=== PATIENT | female | born 1995 | race Caucasian/White ===

== ENCOUNTER 2017-09-17 00:02 | Observation (INO) | payer OTHER ==
[2017-09-17] VITALS (8 sets, daily range): BP systolic 94–129; BP diastolic 45–82; PULSE 60–76; TEMP 36.4–36.9; O2SAT 94–99; Ht 162.6 cm; Wt 56.5 kg
[~2017-09-17] VITALS: Ht 162.6 cm; Wt 56.5 kg
[2017-09-17] MEDS ORDERED: SODIUM CHLORIDE 0.9% 500ML 500 ML IV STA (00:43)
[2017-09-17] MEDS ORDERED: MoRPHine SULFATE 2 MG/ML CARP IV STA (00:43)
[2017-09-17] MEDS ORDERED: SODIUM CHLORIDE 0.9% 1000ML 1,000 ML IV STA (00:43)
[2017-09-17] MEDS ORDERED: ONDANSETRON INJ 2 MG/ML 2 ML VIAL IV STA (00:43)
--- NOTE | 2017-09-17 00:45 | EMERGENCY ROOM VISIT NOTE ---
History Report prepared by Scribe: Janette Parkinson Under the Supervision of: Dr. Phyllis Dunbar M.D. First contact with patient: 00:29 Chief Complaint: ABDOMINAL PAIN Stated Complaint: STOMACH PAIN History of Present Illness The patient is a 21 year old female who presents to the Emergency Room with complaints of worsening abdominal pain since 1800 this evening. She rates her pain as a 7/10 in severity. The pain started in her mid-upper abdomen, then moved down to the right. She is minimally nauseated. She has not vomited or had diarrhea. 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 She denies any chance of . Her last BM was yesterday and normal. She denies any history of chronic medical problems. She has never experienced an ovarian cyst before. Source of History: patient Onset: 1800 today Position: abdomen Symptom Intensity: 7/10 Timing: worsening Associated Symptoms: + nausea, No vomiting, No diarrhea Review of Systems See HPI for pertinent positives & negatives. A total of 10 systems reviewed and were otherwise negative. Past Medical & Surgical Medical Problems: (1) Acute appendicitis (2) No significant past medical history (3) RLQ abdominal pain Social History Smoking Status: Never Smoker Alcohol Use: occasionally Drug Use: none Marital Status: single Housing Status: lives with roommate Occupation Status: [employer] student Current/Historical Medications Scheduled Fluoxetine Hcl (Prozac), 1 CAP PO QAM Fluoxetine Hcl (Prozac), 1 CAP PO QAM Scheduled PRN Oxycodone/Acetaminophen 5MG/325MG (Percocet 5MG/325MG), 1 TABLET PO Q4H PRN for Pain Allergies Coded Allergies: No Known Allergies (Unverified , 09/17/17) Physical Exam Vital Signs Date Time Temp Pulse Resp B/P (MAP) Pulse Ox O2 Delivery O2 Flow Rate FiO2 09/17/17 08:41 69 18 112/77 97 Room Air 09/17/17 06:52 56 18 114/66 98 Room Air 09/17/17 05:36 36.7 60 18 100/64 98 Room Air 09/17/17 05:10 57 09/17/17 04:00 36.8 62 18 104/72 98 Room Air 09/17/17 02:05 63 18 102/60 98 Room Air 09/17/17 01:13 61 09/17/17 00:23 36.7 72 18 122/77 98 Room Air Physical Exam Vital signs reviewed. General: Well-appearing 21 year old female, in no significant distress. HEENT: No scleral icterus, PERRLA, neck supple. Atraumatic. Cardiovascular: Regular rate and rhythm, no extra sounds. Pulmonary: Clear to auscultation bilaterally, normal work of breathing. Abdomen: Soft, tender in the RLQ, no rebound, no guarding, nondistended, positive bowel sounds. Musculoskeletal: Atraumatic, no peripheral edema. Neurologic: Patient awake alert and oriented x 3 Skin: Warm, dry, no rash Medical Decision & Procedures ER Provider Diagnostic Interpretation: Radiology results as stated below per my review and radiologist interpretation: CT ABDOMEN & PELVIS With Contrast: Lower thorax is unremarkable. Liver, gallbladder, spleen, pancreas and adrenal glands are unremarkable. Kidneys, ureters and urinary bladder unremarkable. Uterus and adnexa unremarkable. Appendix is not visualized. Mild thickening of the proximal small bowel which may represent a nonspecific enteritis. Moderate amount of stool noted throughout the colon. Trace free fluid in pelvis, likely physiologic. No acute osseous abnormality. Radiologist: Reuben Felipe MD Laboratory Results 09/17/17 01:05 Red Blood Count 4.08, Mean Corpuscular Volume 92.4, Mean Corpuscular Hemoglobin 32.1, Mean Corpuscular Hemoglobin Concent 34.7, Mean Platelet Volume 9.7, Neutrophils (%) (Auto) 55.6, Lymphocytes (%) (Auto) 34.7, Monocytes (%) (Auto) 8.6, Eosinophils (%) (Auto) 0.8, Basophils (%) (Auto) 0.2, Neutrophils # (Auto) 4.89, Lymphocytes # (Auto) 3.06, Monocytes # (Auto) 0.76, Eosinophils # (Auto) 0.07, Basophils # (Auto) 0.02 09/17/17 01:05 Test 09/17/17 01:05 09/17/17 01:08 White Blood Count 8.81 K/uL (4.8-10.8) Red Blood Count 4.08 M/uL (4.2-5.4) Hemoglobin 13.1 g/dL (12.0-16.0) Hematocrit 37.7 % (37-47) Mean Corpuscular Volume 92.4 fL (80-100) Mean Corpuscular Hemoglobin 32.1 pg (25-34) Mean Corpuscular Hemoglobin Concent 34.7 g/dl (32-36) Platelet Count 268 K/uL (130-400) Mean Platelet Volume 9.7 fL (7.4-10.4) Neutrophils (%) (Auto) 55.6 % Lymphocytes (%) (Auto) 34.7 % Monocytes (%) (Auto) 8.6 % Eosinophils (%) (Auto) 0.8 % Basophils (%) (Auto) 0.2 % Neutrophils # (Auto) 4.89 K/uL (1.4-6.5) Lymphocytes # (Auto) 3.06 K/uL (1.2-3.4) Monocytes # (Auto) 0.76 K/uL (0.11-0.59) Eosinophils # (Auto) 0.07 K/uL (0-0.5) Basophils # (Auto) 0.02 K/uL (0-0.2) RDW Standard Deviation 40.7 fL (36.4-46.3) RDW Coefficient of Variation 12.0 % (11.5-14.5) Immature Granulocyte % (Auto) 0.1 % Immature Granulocyte # (Auto) 0.01 K/uL (0.00-0.02) Anion Gap 6.0 mmol/L (3-11) Est Creatinine Clear Calc Drug Dose 102.9 ml/min Estimated GFR () 131.8 Estimated GFR (Non- 113.7 BUN/Creatinine Ratio 21.5 (10-20) Calcium Level 9.7 mg/dl (8.5-10.1) Total Bilirubin 0.4 mg/dl (0.2-1) Direct Bilirubin 0.1 mg/dl (0-0.2) Aspartate Amino Transf (AST/SGOT) 15 U/L (15-37) Alanine Aminotransferase (ALT/SGPT) 22 U/L (12-78) Alkaline Phosphatase 98 U/L (45-117) Total Protein 7.6 gm/dl (6.4-8.2) Albumin 3.9 gm/dl (3.4-5.0) Lipase 140 U/L (73-393) Urine Color YELLOW Urine Appearance CLEAR (CLEAR) Urine pH 6.5 (4.5-7.5) Urine Specific [place] 1.019 (1.000-1.030) Urine Protein NEG (NEG) Urine Glucose (UA) NEG (NEG) Urine Ketones NEG (NEG) Urine Occult Blood NEG (NEG) Urine Nitrite NEG (NEG) Urine Bilirubin NEG (NEG) Urine Urobilinogen NEG (NEG) Urine Leukocyte Esterase TRACE (NEG) Urine WBC (Auto) 1-5 /hpf (0-5) Urine RBC (Auto) 0-4 /hpf (0-4) Urine Hyaline Casts (Auto) 0 /lpf (0-5) Urine Epithelial Cells (Auto) 10-20 /lpf (0-5) Urine Bacteria (Auto) NEG (NEG) Urine Test NEG (NEG) Laboratory results per my review. Medications Administered Medications (Trade) Dose Ordered Sig/Petr Route Start Time Stop Time Status Last Admin Dose Admin Morphine Sulfate (MoRPHine SULFATE INJ) 2 mg NOW STAT IV 09/17/17 00:43 09/17/17 00:44 DC 09/17/17 01:04 2 MG Ondansetron HCl (Zofran Inj) 4 mg NOW STAT IV 09/17/17 00:43 09/17/17 00:44 DC 09/17/17 01:04 4 MG Sodium Chloride 1,000 ml @ 125 mls/hr Q8H STAT IV 09/17/17 00:43 09/17/17 08:42 DC 09/17/17 01:04 125 MLS/HR Sodium Chloride 500 ml @ 999 mls/hr Q31M STAT IV 09/17/17 00:43 09/17/17 01:13 DC 09/17/17 01:04 999 MLS/HR Morphine Sulfate (MoRPHine SULFATE INJ) 4 mg NOW STAT IV 09/17/17 04:29 09/17/17 04:30 DC 09/17/17 04:33 4 MG Ketorolac Tromethamine (Toradol Inj) 30 mg NOW STAT IV 09/17/17 04:56 09/17/17 04:57 DC 09/17/17 05:05 30 MG ED Course 0041: Past medical records reviewed. The patient was evaluated in room B8. A complete history and physical examination was performed. 0043: NSS 500 ml @ 999 mls/hr IV, NSS 1000 ml @ 125 mls/ht IV, Zofran 4 mg IV, Morphine Sulfate 2 mg IV. 0429: Morphine Sulfate 4 mg IV. 0455: I reevaluated the patient. She states she is now having pain in the left upper flank and RLQ. I will administer a dose of Toradol and recheck her. 0456: Toradol 30 mg IV. 0515: Nursing informed me the patient is still complaining of pain. I will page general surgery. 0540: I [facility]. The patient will be further evaluated in the ED. 0650: I discussed the patients CT scan with Dr. Rose, Radiology. He thinks he sees either a non-opacified loop of bowel versus dilated appendix on CT scan. Medical Decision Differential diagnosis: Etiologies such as appendicitis, diverticulitis, PUD, biliary pathology, UTI, pancreatitis, obstruction, mesenteric ischemia, aortic pathology, infections, inflammatory bowel disease, renal colic, as well as others were entertained. This pt was evaluated and appeared to be in no distress. PE reveals RLQ tenderness. IV access was obtained and lab work was drawn. Pt was hydrated with NSS, given IV morphine and zofran. WBC is normal, CT scan abd and pelvis per STAT Rad is unable to visualize the appendix. Pt was medicated with additional morphine and given a dose of toradol. She continued to experience 7/ 10 pain. I clinically suspected appendicitis. Dr Ojeda of general surgery was contacted for consult in the ED. He was in the OR with another patient. Dr Rose of [facility] rads over-read the CT and expressed concerns for a dilated appendix, not filling with contrast. Surgery PA was consulted and they will be evaluating the pt in the ED. Dr Gupta was made aware of the plan at the change of shift. Pt is aware of the plan and agrees. Medication Reconcilliation Current Medication List: was personally reviewed by me Blood Pressure Screening Patient's blood pressure: Normal blood pressure Blood pressure disposition: Did not require urgent referral Consults Time Called: 514 Consulting Physician: Dr. Ojeda, [facility] [address] General Surgery Returned Call: 0540 I discussed the patients case [facility] Dr[facility] The patient will be further evaluated in the ED. Impression Primary Impression: Right lower quadrant abdominal pain Scribe Attestation The scribe's documentation has been prepared under my direction and personally reviewed by me in its entirety. I confirm that the note above accurately reflects all work, treatment, procedures, and medical decision making performed by me. Departure Information Dispostion Being Evaluated By Surgeon Prescriptions Oxycodone/Acetaminophen 5MG/325MG (PERCOCET 5MG/325MG) Tab 1 TABLET PO Q4H Y for Pain, #18 TAB Prov: Blank Beauchamp ., EARL 09/17/17 Referrals No Doctor, Assigned (PCP) Patient Instructions My [facility]
[2017-09-17 01:13] LABS: BASO % 0.2 %; BASO ABS # 0.02 K/uL (0-0.2); EOS % 0.8 %; EOS ABS # 0.07 K/uL (0-0.5); HEMATOCRIT 37.7 % (37-47); HEMOGLOBIN 13.1 g/dL (12.0-16.0); IG# 0.01 K/uL (0.00-0.02); LYMPH % 34.7 %; LYMPH ABS # 3.06 K/uL (1.2-3.4); MEAN CELL VOLUME 92.4 fL (80-100); MEAN CORPUSCULAR HEMOGLOBIN 32.1 pg (25-34); MEAN CORPUSCULAR HGB CONC 34.7 g/dl (32-36); MEAN PLATELET VOLUME 9.7 fL (7.4-10.4); MONO % 8.6 %; MONO ABS # 0.76 K/uL (0.11-0.59); NEUT % 55.6 %; NEUT ABS # 4.89 K/uL (1.4-6.5); PLATELET COUNT 268 K/uL (130-400); RED CELL DISTRIBUTION WIDTH SD 40.7 fL (36.4-46.3); WHITE BLOOD COUNT 8.81 K/uL (4.8-10.8)
[2017-09-17] MEDS ORDERED: FLUO20CA34 PO (01:25)
[2017-09-17] MEDS ORDERED: PRZC/10 PO (01:25)
[2017-09-17 01:31] LABS: ALBUMIN 3.9 gm/dl (3.4-5.0); CALCIUM 9.7 mg/dl (8.5-10.1); CREATININE 0.76 mg/dl (0.60-1.20); POTASSIUM 3.6 mmol/L (3.5-5.1)
[2017-09-17 01:34] LABS: TOTAL PROTEIN 7.6 gm/dl (6.4-8.2)
[2017-09-17] MEDS ORDERED: OPTIRAY 320 IV PRN (03:45)
[2017-09-17] MEDS ORDERED: MoRPHine SULFATE 4 MG/ML 1 ML CARP\\VIAL IV STA (04:29)
[2017-09-17] MEDS ORDERED: KETOROLAC TROMETHAMINE 30 MG/ML VIAL IV STA (04:56)
--- NOTE | 2017-09-17 06:55 | DIAGNOSTIC IMAGING REPORT ---
CT OF THE ABDOMEN AND PELVIS WITH CONTRAST CLINICAL HISTORY: Right lower quadrant abdominal pain. COMPARISON STUDY: None. TECHNIQUE: Following IV administration of 93 mL of Optiray-320, axial images of the abdomen and pelvis were obtained from the lung bases to the proximal femurs. Images were reviewed in the axial, sagittal, and coronal planes. IV contrast was administered without complication. A dose lowering technique was utilized adhering to the principles of ALARA. Oral contrast was administered. CT DOSE: 281.47 mGy.cm FINDINGS: The liver, spleen, adrenal glands, kidneys and pancreas are normal. There is no biliary or pancreatic ductal dilatation. There is no hydronephrosis. There is no evidence for a bowel obstruction. A normal appendix is not visualized. There is a 1.1 cm tubular unopacified structure along the medial base of the cecum shown on axial image 327 of 451. This is indeterminate. This may reflect an abnormal appendix or an opacified small bowel loop. There is no abscess or free air. No suspicious osseous lesions are present. The ovaries are not enlarged. IMPRESSION: Findings equivocal for acute appendicitis. No normal appendix identified. 1.1 cm tubular structure along the medial base of the cecum could reflect a dilated appendix or unopacified small bowel loop. At a minimum, close clinical follow-up is recommended. Findings discussed with Dr. Dunbar at time dictation. Electronically signed by: Thee Rose M.D. 09/17/2017 6:54 AM Dictated Date/Time: 09/17/2017 6:42 AM
--- NOTE | 2017-09-17 09:15 | EMERGENCY ROOM VISIT NOTE ---
ED Visit Note First contact with patient: 08:21 I assumed care at the change of shift, Dr. Dunbar had been the physician prior to me. Patient was seen by surgery, she will be going to the OR later today for presumed appendicitis. She is currently resting.
[2017-09-17] MEDS ORDERED: OXYCODONE/ACETAMINOPHEN 5-325 TAB PO PRN ×2 (09:30)
[2017-09-17] MEDS ORDERED: MoRPHine SULFATE 2 MG/ML CARP IV PRN ×2 (09:30)
[2017-09-17] MEDS ORDERED: MoRPHine SULFATE 4 MG/ML 1 ML CARP\\VIAL IV PRN (09:30)
--- NOTE | 2017-09-17 09:34 | History and Physical ---
History & Physical Date & Time of Service: Sep 17, 2017 at 09:22 Chief Complaint: Stomach Pain Primary Care Physician: [facility] History of Present Illness Source: patient Elva is a 21-year-old female who presented to the emergency room last evening with complaint of abdominal pain that began around 6 PM. Describes pain as a dull aching pain that progressively got worse. Pain would radiate into the right lower side. Associated nausea but no vomiting. States she does have a low appetite. Was in her normal state of health yesterday morning. Denies of any changes in her bowel habits, no diarrhea, no constipation, or blood in the stools. She denies of any similar previous abdominal pain. Denies of any fevers, chills, vomiting, changes in urinary habits, blood in the urine, or dysuria. States walking does make the pain worse. Last menstrual period 2 weeks ago. Denies of irregular menses. She denies of any known family history of Crohn's disease or ulcerative colitis. Emergency room workup included labs which showed no leukocytosis. CT scan of abdomen and pelvis with IV and p.o. contrast stat read showed no findings of acute appendicitis. CT scan read by our radiologist showed equivocal findings of acute appendicitis. No normal appendix was identified however there was a 1.1 cm tubular structure in the right lower quadrant medial to the cecum which could be a dilated appendix versus a nonopacified loop of small bowel. She was kept for observation in the emergency room. She was given IV morphine and pain was improved slightly to 5 out of 10. No previous history of abdominal surgeries. Past Medical/Surgical History Past medical history No significant past medical history Surgical history Lymph node biopsy at age 3 Social History Smoking Status: Never Smoker Drug Use: none Marital Status: single Occupational Status: [employer] student Allergies Coded Allergies: No Known Allergies (Unverified , 09/17/17) Home Medications Scheduled Fluoxetine Hcl (Prozac), 1 CAP PO QAM Fluoxetine Hcl (Prozac), 1 CAP PO QAM Review of Systems Constitutional: No fever, No chills, No sweats Respiratory: No cough, No shortness of breath Cardiovascular: No chest pain Abdomen: + pain, + nausea, No vomiting, No diarrhea, No constipation, No GI bleeding Genitourinary - Female: No dysuria, No urinary frequency, No urinary urgency, No urinary incontinence, No hematuria, No dysmenorrhea, No menorrhagia, No vaginal discharge, No vaginal itching Hematologic / Lymphatic: No abnormal bleeding/bruising Integumentary: No rash Physical Exam Vital Signs Date Time Temp Pulse Resp B/P (MAP) Pulse Ox O2 Delivery O2 Flow Rate FiO2 09/17/17 08:41 69 18 112/77 97 Room Air 09/17/17 06:52 56 18 114/66 98 Room Air 09/17/17 05:36 36.7 60 18 100/64 98 Room Air 09/17/17 05:10 57 09/17/17 04:00 36.8 62 18 104/72 98 Room Air 09/17/17 02:05 63 18 102/60 98 Room Air 09/17/17 01:13 61 09/17/17 00:23 36.7 72 18 122/77 98 Room Air General Appearance: WD/WN, no apparent distress Head: normocephalic, atraumatic Eyes: sclerae normal ENT: hearing grossly normal Neck: trachea midline Respiratory/Chest: lungs clear, normal breath sounds, no respiratory distress, no accessory muscle use Cardiovascular: regular rate, rhythm, no murmur Abdomen/GI: soft, no organomegaly, no pulsatile mass, + tenderness ( Generalized tenderness on deep palpation however more significantly in RLQ on mild palpation with positive McBurney's sign and some voluntary and involuntary guarding, no peritonitis) Back: normal inspection Extremities/Musculoskelatal: normal inspection, no pedal edema Neurologic/Psych: alert, normal mood/affect, oriented x 3 Skin: normal color, warm/dry, no rash Diagnostics Laboratory Results Results Past 24 Hours Test 09/17/17 01:05 09/17/17 01:08 Range/Units White Blood Count 8.81 4.8-10.8 K/uL Red Blood Count 4.08 4.2-5.4 M/uL Hemoglobin 13.1 12.0-16.0 g/dL Hematocrit 37.7 37-47 % Mean Corpuscular Volume 92.4 80-100 fL Mean Corpuscular Hemoglobin 32.1 25-34 pg Mean Corpuscular Hemoglobin Concent 34.7 32-36 g/dl Platelet Count 268 130-400 K/uL Mean Platelet Volume 9.7 7.4-10.4 fL Neutrophils (%) (Auto) 55.6 % Lymphocytes (%) (Auto) 34.7 % Monocytes (%) (Auto) 8.6 % Eosinophils (%) (Auto) 0.8 % Basophils (%) (Auto) 0.2 % Neutrophils # (Auto) 4.89 1.4-6.5 K/uL Lymphocytes # (Auto) 3.06 1.2-3.4 K/uL Monocytes # (Auto) 0.76 0.11-0.59 K/uL Eosinophils # (Auto) 0.07 0-0.5 K/uL Basophils # (Auto) 0.02 0-0.2 K/uL RDW Standard Deviation 40.7 36.4-46.3 fL RDW Coefficient of Variation 12.0 11.5-14.5 % Immature Granulocyte % (Auto) 0.1 % Immature Granulocyte # (Auto) 0.01 0.00-0.02 K/uL Sodium Level 140 136-145 mmol/L Potassium Level 3.6 3.5-5.1 mmol/L Chloride Level 107 98-107 mmol/L Carbon Dioxide Level 27 21-32 mmol/L Anion Gap 6.0 3-11 mmol/L Blood Urea Nitrogen 16 7-18 mg/dl Creatinine 0.76 0.60-1.20 mg/dl Est Creatinine Clear Calc Drug Dose 102.9 ml/min Estimated GFR () 131.8 Estimated GFR (Non- 113.7 BUN/Creatinine Ratio 21.5 10-20 Random Glucose 96 70-99 mg/dl Calcium Level 9.7 8.5-10.1 mg/dl Total Bilirubin 0.4 0.2-1 mg/dl Direct Bilirubin 0.1 0-0.2 mg/dl Aspartate Amino Transf (AST/SGOT) 15 15-37 U/L Alanine Aminotransferase (ALT/SGPT) 22 12-78 U/L Alkaline Phosphatase 98 45-117 U/L Total Protein 7.6 6.4-8.2 gm/dl Albumin 3.9 3.4-5.0 gm/dl Lipase 140 73-393 U/L Urine Color YELLOW Urine Appearance CLEAR CLEAR Urine pH 6.5 4.5-7.5 Urine Specific [place] 1.019 1.000-1.030 Urine Protein NEG NEG Urine Glucose (UA) NEG NEG Urine Ketones NEG NEG Urine Occult Blood NEG NEG Urine Nitrite NEG NEG Urine Bilirubin NEG NEG Urine Urobilinogen NEG NEG Urine Leukocyte Esterase TRACE NEG Urine WBC (Auto) 1-5 0-5 /hpf Urine RBC (Auto) 0-4 0-4 /hpf Urine Hyaline Casts (Auto) 0 0-5 /lpf Urine Epithelial Cells (Auto) 10-20 0-5 /lpf Urine Bacteria (Auto) NEG NEG Urine Test NEG NEG Diagnostic Radiology CT ABD/PELVIS WITH IV AND ORAL CONTRAST IMPRESSION: Findings equivocal for acute appendicitis. No normal appendix identified. 1.1 cm tubular structure along the medial base of the cecum could reflect a dilated appendix or unopacified small bowel loop. At a minimum, close clinical follow-up is recommended. Findings discussed with Dr. Dunbar at time dictation. Impression Assessment and Plan 21-year-old female presented to the emergency room last evening with complaint of mid abdominal pain that started at 6 PM with radiation to the right lower quadrant. CT scan of the abdomen and pelvis with IV and oral contrast showing equivocal findings for acute appendicitis. There was no normal appendix identified however there was a 1.1 cm tubular structure in the right lower quadrant medial to the cecum which could represent a dilated appendix or nonopacified loop of small bowel. No leukocytosis. No fever. Examination shows right lower quadrant tenderness positive McBurney sign and some voluntary and involuntary guarding. Although imaging and labs are discordant for acute appendicitis, examination and history consistent with possible early acute appendicitis. Plan: Plan to take patient to the operating room for laparoscopic appendectomy possible open. Discussed with patient the procedure and risks including bleeding, infection, injury to surrounding structures/organs, staple leak, possible normal appendix. Patient understood and informed consent obtained. Patient will be started on IV fluids, IV pain medication as needed, IV Zofran as needed for nausea. She will be given 2 g of cefoxitin IV preop. [facility]. Ojeda has seen and evaluated patient agrees with above. Resuscitation Status VTE Prophylaxis Will order VTE Prophylaxis: Yes Note I interviewed and examined this patient and reviewed her laboratories and reviewed her CT scan report and images with the radiologist. This patient's history and physical are consistent with appendicitis. The CT scan suggested that there may have been a dilated area medial to the cecum and inferior to the ileocecal valve but definitive diagnosis of appendicitis could not be made. I think based on her history and physical and the suggestion of appendicitis by CT it is reasonable to perform a laparoscopic appendectomy. I explained the procedure to the patient. I have explained the possible complications. I explained the possible need to convert to an open procedure. Of answer to questions and she has signed a consent form.
[2017-09-17] MEDS ORDERED: BUPIVACAINE 0.5 % 5 MG/1 ML MPF 30ML VIAL ONE (10:20)
[2017-09-17] MEDS ORDERED: HEPARIN SOD (PORCINE) 1000 UNIT/ML 10 ML VIAL ONE (10:20)
[2017-09-17] MEDS ORDERED: CEFAZOLIN SOD 1 GM VIAL ONE (10:24)
[2017-09-17] MEDS ORDERED: CEFOXITIN IV 2,000 MG in DEXTROSE 5% 50ML 50 ML IV SCH (10:30)
[2017-09-17] MEDS ORDERED: IV FLUIDS COMPLETED PRN (10:30)
[2017-09-17] MEDS ORDERED: FENTANYL CITRATE INJ 50 MCG/1 ML 2 ML VIAL ONE ×2 (11:40→12:20)
[2017-09-17] MEDS ORDERED: MIDAZOLAM HCL 1 MG/ML 2ML VIAL ONE (11:40)
[2017-09-17] MEDS ORDERED: EpHEDrine SULFATE INJ 50 MG/ML AMP IV PRN (11:45)
[2017-09-17] MEDS ORDERED: ATROPINE SULFATE 0.1 MG/ML 5ML SYR IV PRN (11:45)
[2017-09-17] MEDS ORDERED: ONDANSETRON INJ 2 MG/ML 2 ML VIAL IV PRN (11:45)
[2017-09-17] MEDS ORDERED: PHENYLEPHRINE 100MCG/ML 5ML SYR IV PRN (11:45)
[2017-09-17] MEDS ORDERED: GLYCOPYRROLATE INJ 0.2 MG/ML VIAL ONE (12:21)
[2017-09-17] MEDS ORDERED: DEXAMETHASONE SOD INJ 4 MG/ML VIAL ONE (12:21)
[2017-09-17] MEDS ORDERED: LIDOCAINE HCL 2% 2 ML VIAL (20MG/ML) ONE (12:21)
[2017-09-17] MEDS ORDERED: PHENYLEPHRINE HCL INJ 10 MG/ML VIAL ONE (12:21)
[2017-09-17] MEDS ORDERED: NEOSTIGMINE METHYLSULFATE 5 MG/5 ML SYR ONE (12:21)
[2017-09-17] MEDS ORDERED: ROCURONIUM BROMIDE 10 MG/ML 5 ML VIAL IV ONE (12:21)
[2017-09-17] MEDS ORDERED: ONDANSETRON INJ 2 MG/ML 2 ML VIAL ONE (12:21)
[2017-09-17] MEDS ORDERED: PROPOFOL IV EMULSION 10 MG/ML 20 ML VIAL IV ONE (12:21)
[2017-09-17] MEDS ORDERED: CEFAZOLIN SOD 1 GM VIAL IRRIG ONE (12:56)
--- NOTE | 2017-09-17 13:08 | [facility] Post Operative Brief Note ---
Immediate Operative Summary Operative Date Sep 17, 2017. Pre-Operative Diagnosis Acute Appendicitis Post-Operative Diagnosis Acute Appendicitis Procedure(s) Performed Laparoscopic Appendectomy Surgeon Dr. Ojeda Stripper Shovel Operator Surgeon(s) GERMAIN Hong Estimated Blood Loss 3 ml Findings Consistent with Post-Op Diagnosis Specimens A. Appendix Drains None Anesthesia Type General Complication(s) none Disposition Disposition: Recovery Room / PACU
[2017-09-17] MEDS ORDERED: OXYC-57 PO (13:19)
--- NOTE | 2017-09-17 13:24 | Discharge Instructions ---
Discharge Instructions Date of Service Sep 17, 2017. Admission Reason for Admission: Stomach Pain Discharge Discharge Diagnosis / Problem: Acute appendicitis Discharge Goals Goal(s): Decrease discomfort, Improve function Activity Recommendations Activity Limitations: as noted below No heavy lifting over 10 pounds for 2 weeks No strenuous activity until cleared by surgeon No submerging incisions underwater for 2 weeks (no bathing, swimming, or hot tubs) No driving while taking narcotic pain medication or until you are pain free . Instructions / Follow-Up Instructions / Follow-Up You may shower in 24 hours Leave steri strips on incisions for 7 days and then remove. They may fall off on their own that is okay. Walking and light activity is encouraged to prevent blood clots from forming in your legs You will be given narcotic pain medication as needed for moderate to severe pain. This medication may make you drowsy or can cause constipation. Take OTC stool softener such as Colace and drink plenty of water to combat constipation. You may take Ibuprofen in between Percocet as needed for pain. If you are no longer taking Percocet you may take extra strength Tylenol as needed for mild pain Follow-up in surgical office in 1-2 weeks, please call office at [phone] to make an appointment. Current Hospital Diet Patient's current hospital diet: Regular Diet Discharge Diet Recommended Diet: Regular Diet Procedures Procedures Performed: Laparoscopic Appendectomy Pending Studies Studies pending at discharge: yes List of pending studies: Appendix pathology, will be reviewed at follow up visit Medical Emergencies . Who to Call and When: Medical Emergencies: If at any time you feel your situation is an emergency, please call 911 immediately. . Non-Emergent Contact Non-Emergency issues call your: Primary Care Provider, Surgeon Call Non-Emergent contact if: you have a fever, temperature is above 101, your pain is not controlled, your pain is worsening, your pain is unusual for you, wound has increased drainage, wound has increased redness, wound has increased pain . "Provider Documentation" section prepared by Blank Beauchamp. . [place] Drug Monitoring Program Search Results: patient reviewed within database, no issues identified
[2017-09-17] MEDS: HYDROmorphone INJ 2 MG/ML SYR/VIAL IV PRN ×4 (13:25→13:40)
--- NOTE | 2017-09-17 13:39 | Anesthesiology Progress Note ---
Anesthesia Post Op Note Date & Time Sep 17, 2017 at 13:39 Vital Signs Pain Intensity: 6 Vital Signs Past 12 Hours Date Time Temp Pulse Resp B/P (MAP) Pulse Ox O2 Delivery O2 Flow Rate FiO2 09/17/17 13:29 36.2 93 15 120/72 (82) 99 Oxymask 10 09/17/17 13:27 76 17 100 09/17/17 13:27 76 17 09/17/17 13:26 118/72 09/17/17 13:22 83 18 09/17/17 13:22 84 18 100 09/17/17 13:21 123/68 09/17/17 13:18 120/72 09/17/17 13:17 100 09/17/17 13:17 100 100 09/17/17 10:00 68 18 108/72 99 Room Air 09/17/17 09:22 97 Room Air 09/17/17 08:41 69 18 112/77 97 Room Air 09/17/17 06:52 56 18 114/66 98 Room Air 09/17/17 05:36 36.7 60 18 100/64 98 Room Air 09/17/17 05:10 57 09/17/17 04:00 36.8 62 18 104/72 98 Room Air 09/17/17 02:05 63 18 102/60 98 Room Air Notes Mental Status: alert / awake / arousable, participated in evaluation Pt Amnestic to Procedure: Yes Nausea / Vomiting: adequately controlled Pain: adequately controlled Airway Patency, RR, SpO2: stable & adequate BP & HR: stable & adequate Hydration State: stable & adequate Anesthetic Complications: no major complications apparent
--- NOTE | 2017-09-17 13:57 | OPERATIVE REPORT ---
DATE OF OPERATION: 09/17/2017 PREOPERATIVE DIAGNOSIS: Appendicitis. POSTOPERATIVE DIAGNOSIS: Same. PROCEDURE: Laparoscopic appendectomy. SURGEON: Jarrett Ojeda MD [employer] FLOATS: Blank Beauchamp PA-C FINDINGS: The appendix was mildly firm. The center portion appeared dilated. The base was normal as was the cecum at the base of the appendix. There was no evidence of perforation or abscess. There was a small cyst of the right ovary that was photographed. There was a small amount of fluid in the pelvis, but there was no evidence of purulent fluid. The visible bowel appeared normal. TECHNIQUE: The patient was given a general anesthetic and the area was prepped and draped in the usual sterile fashion. Transverse incision was made below the umbilicus, carried down through the subcutaneous tissue to the fascia, which was grasped with 2 Arnel clamps and incised between. The peritoneum was identified, incised, and the introducer was placed bluntly. The abdomen was then insufflated to a pressure of 15 mmHg of carbon dioxide. The lower midline introducer was placed under direct vision. Traction was placed superiorly and medially on the cecum and the appendix was identified. The left lower quadrant introducer was placed under direct vision. Traction was placed anteriorly on the appendix and a plane was established between the base of the appendix and the mesoappendix. The mesoappendix was divided using the Endo-IRA. That completely freed the appendix, which allowed me to confirm the fact that I was at the base. The appendix was amputated using the Endo-IRA. There was a minimal amount of oozing from the staple line that was easily controlled with cautery. The appendix was placed into an Endobag and brought it through the left lower quadrant introducer site with ease. The introducer was replaced. The right lower quadrant was irrigated and the irrigation removed. The staple lines were inspected and there was no bleeding. Any irrigation in the right upper quadrant was removed and any irrigation in the pelvis was removed. The ovary had been previously identified and inspected. The gas was allowed to escape and the introducers were removed. The fascia of the umbilical and left lower quadrant introducer sites was closed with interrupted 0 Vicryl and the skin of all the incisions was closed with 4-0 Monocryl in either an interrupted or running subcuticular fashion. The skin was anesthetized with 0.5% Marcaine. The skin was cleansed, dried, benzoin placed, Steri-Strips applied. The estimated blood loss was 5 mL. Sponge, needle and instrument counts were correct prior to closure. The patient tolerated the surgical procedure without complication and was transferred to recovery. I attest to the content of the Intraoperative Record and any orders documented therein. Any exception s are noted below.
[2017-09-17] MEDS: ONDANSETRON INJ 2 MG/ML 2 ML VIAL IV PRN ×2 (16:09→21:46)
[2017-09-17] MEDS: SODIUM CHLORIDE 0.9% 1000ML 1,000 ML IV SCH ×2 (16:25→23:33)
[2017-09-17] MEDS: ACETAMINOPHEN 325 MG TAB PO PRN (23:32)
[2017-09-18 03:18] VITALS: BP 105/61; PULSE 58; TEMP 36.7; O2SAT 98
[2017-09-18] MEDS ORDERED: CEFOXITIN SOD 2 GM VIAL IV ONE (06:00)
[2017-09-18 07:53] VITALS: BP 98/66; PULSE 57; TEMP 37; O2SAT 100
[2017-09-18 08:40] VITALS: O2SAT 100
[2017-09-18] MEDS: SODIUM CHLORIDE 0.9% 1000ML 1,000 ML IV SCH (09:44)
[2017-09-18] MEDS: ACETAMINOPHEN 325 MG TAB PO PRN ×2 (09:47→15:40)
--- NOTE | 2017-09-18 13:47 | Surgery Progress Note ---
Surgery Progress Note Date of Service Sep 18, 2017. Subjective Post OP Day: 1 + feeling well, + pain controlled, + diet (tolerated regular diet), No nausea, No vomiting Objective Vital Signs: Date Time Temp Pulse Resp B/P (MAP) Pulse Ox O2 Delivery O2 Flow Rate FiO2 09/18/17 08:40 100 Room Air 09/18/17 07:53 37.0 57 18 98/66 (77) 100 Room Air 09/18/17 03:18 36.7 58 16 105/61 (76) 98 Room Air 09/17/17 23:35 Room Air 09/17/17 23:04 36.9 60 16 96/60 (72) 94 Room Air 09/17/17 19:02 36.8 60 16 97/60 (72) 94 Room Air 09/17/17 17:21 36.4 64 16 95/61 (72) 95 Room Air 09/17/17 16:25 Room Air 09/17/17 16:20 36.4 76 14 94/45 (61) 96 Room Air 09/17/17 15:20 36.4 76 17 114/73 (87) 99 Nasal Cannula 2.0 09/17/17 14:50 76 18 129/81 (97) 98 2.0 09/17/17 14:20 98 Nasal Cannula 2.0 09/17/17 14:20 98 Nasal Cannula 2.0 09/17/17 14:20 36.6 76 13 127/82 (97) 98 Nasal Cannula 2.0 09/17/17 13:52 72 17 100 09/17/17 13:52 72 17 09/17/17 13:51 125/76 09/17/17 13:48 36.9 68 16 125/76 (93) 99 Nasal Cannula 2 09/17/17 13:47 79 16 09/17/17 13:47 78 16 100 09/17/17 13:46 108/89 Abdomen: non distended, soft, + tenderness (Incisional only) Assessment & Plan S/P laparoscopic appendectomy Doing well Can D/C o home Follow up with me in office in 2 weeks Activity restrricions discussed
[2017-09-18 15:21] VITALS: BP 98/66; PULSE 57; TEMP 37; O2SAT 100
== END 2017-09-18 15:48 | disposition home or self-care (01) ==
LOC: C.EDB 00:04 → C.MSW 09:21 → ENRESERV 09:48
PROVIDERS: ADMIT Surgery; ATTEND Surgery
DX: R10.31 Right lower quadrant pain (principal)